=== PATIENT | female | born 1980 | race Caucasian/White ===

== ENCOUNTER 2019-05-13 06:06 | Inpatient (IN) | payer MEDICAID, SELFPAY ==
[2019-05-13] VITALS (77 sets, daily range): BP systolic 0–175; BP diastolic 0–91; PULSE 71–107; RESP 18; TEMP 36.4–37.1; O2SAT 97–99; BMI 41.4
--- NOTE | 2019-05-13 06:42 | PM.HP ---
Providers/Chief Complaint Admitting Physician: Lorenzo Leong MD Chief Complaint: IUP History of Present Illness Miriam Posey is a 38 year old at 40.1 weeks gestation by LMP consistent with 9-week ultrasound. Her is complicated by advanced maternal age, hypothyroidism, history of gestational hypertension, maternal obesity, short inter-gestational spacing, mild anemia. Review of Systems Narrative: The patient denies fever, chest pains, cough, sore throat, dyspnea, leakage of fluid, vaginal bleeding. Medications/Allergies Home Medications Medication Instructions Recorded Confirmed Last Taken Type PNV,calcium 61-lmbw-yntgu acid 1 tab PO DAILY 05/13/19 05/13/19 05/11/19 History [ Vitamin Plus Low Iron] 0500 levothyroxine 100 mcg PO DAILY 05/13/19 05/13/19 05/13/19 History 0500 Allergies Allergy/AdvReac Type Severity Reaction Status Date / Time No Known Allergies Allergy Verified 05/13/19 07:25 PFSH Acute PFSH: Statuses (acute, chronic, etc) shown below reflect problem list status as previously entered and may not be historically accurate Surgical History (Updated 05/13/19 @ 06:49 by Lorenzo Leong MD) H/O ventral hernia repair (Acute) History of repair of pyloric stenosis (Acute) Physical Exam Narrative: EXAM NARRATIVE: General: Alert and oriented x3 Eyes: Pupils equal round and reactive to light and accommodation Mouth: Mucous membranes moist, pharynx non-erythematous Cardiac: Regular rate and rhythm without murmurs Lungs: Clear to auscultation bilaterally without wheezes, crackles or rhonchi Abdomen: Soft, non-tender, fundus consistent with gestational age Extremities: Trace edema in the bilateral lower extremities Data : 05/13/19 07:15 05/13/19 09:15 A&P Additional A&P Information The patient is doing well at this time. She is having contractions sporadically every 5 to 7 minutes. They are not painful at this time. heart tones are in the mid 150s with moderate variability and good accelerations. There is a category 1 tracing. We will plan to proceed with induction of labor with IV Pitocin. On exam, the patient's cervix was 3 cm dilated. The patient may receive a labor and epidural when desired. All questions were answered. The patient and her are in agreement with the current plan of care. Attestations Medical Necessity Statement*: The patient will be here for greater than 2 midnights due to routine intrapartum and management of labor and delivery. 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
[2019-05-13] MEDS: oxytocin 30 UNIT/500 ML BAG IV (07:36)
[2019-05-13] MEDS: dextrose 5%-lactated ringers 1,000 ML 125 ML IV ×2 (07:37→16:44)
[2019-05-13 07:44] LABS: Basophils % 0.3 %; Eosinophils # 0.1 10^3/uL (0.0-0.8); Hematocrit 34.8 % (37.0-47.0); Hemoglobin 11.5 g/dL (11.5-15.3); Lymphocytes # 2.1 10^3/uL (0.8-4.8); Lymphocytes % 22.3 %; Mean Corpuscular Hemoglobin 31.3 pg (28.0-34.0); Mean Corpuscular Volume 94.6 fL (81-99); Mean Platelet Volume 12.9 fL (7.4-10.4); Monocytes # 0.7 10^3/uL (0.2-0.9); Monocytes % 7.3 %; Neutrophils # 6.3 10^3/uL (1.8-7.7); Nucleated Red Blood Cells % 0 %; Platelet Count 191 10^3/cmm (130-400); Red Blood Count 3.68 10^6/uL (4.1-5.3); Red Cell Distribution Width 13.5 % (12.1-15.1); White Blood Count 9.2 10^3/uL (4.0-10.0)
[2019-05-13] MEDS: labetalol 5 mg/mL SDV 20mL 20 MG IVP (08:56)
[2019-05-13 09:29] LABS: Add Urine Microscopic? NO
[2019-05-13 09:46] LABS: Alanine Aminotransferase 7 U/L (0-33); Albumin Level 3.4 g/dL (3.5-5.2); Alkaline Phosphatase 145 IU/L (35-105); Aspartate Amino Transferase 15 U/L (0-32); Blood Urea Nitrogen 8 mg/dL (6-20); Calcium 9.6 mg/dL (8.5-10.5); Carbon Dioxide 21 mmol/L (22-29); Chloride 102 mmol/L (98-107); Globulin 3.3 g/dL (1.3-4.6); Glomerular Filtration Rate 138.1 mL/min (90-130); Glucose 108 mg/dL (74-109); Sodium 135 mmol/L (136-145); Total Bilirubin 0.2 mg/dL (0.15-1.2); Total Protein 6.7 g/dL (6.6-8.7); Uric Acid 5.3 mg/dL (2.4-5.7)
[2019-05-13 10:11] LABS: Bilirubin Urine Neg (NEGATIVE); Blood Urine Neg (Negative); Glucose Urine UA Norm (Normal); Ketones Urine Negative (Negative); Leukocyte Esterase Urine Negative (Negative); Nitrate Urine Negative (Negative); Protein Urine Neg (Negative); Specific Gravity, Urine 1.005 (1.005-1.030); Urine Appearance Clear (CLEAR); Urine Color Straw (Yellow); Urobilinogen Urine Norm (Negative)
[2019-05-13] MEDS: lactated ringers 1,000 ML 999 ML IV ×2 (10:24)
[2019-05-13 10:26] LABS: Urine Creatinine 39 mg/dL (28-217); Urine Protein Random 4 mg/dL
--- NOTE | 2019-05-13 12:02 | ANES.PROC ---
Anesthesia Procedures Procedure/Date: 05/13/19 Epidural: Time Out Performed: Yes Consents Signed: Procedure Consent and NPO Consent Consent: requested by attending/covering physician, from patient, risks and benefits reviewed and patient agrees to proceed Lumbar Level: L2-L3 Epidural position: sitting Epidural procedure: sterile prep of area, 1% lidocaine to numb the area, 18 g needle, negative for paresthesia passed, test dose given, 1.5% xylocaine 1:200k epi (3 ml), placed PCEA, no systemic response, sterile dressing applied and 0.2% Ropiavacaine @ mls/hr (13) Additional Comments: Loss at 6 cm, threaded to 12 cm (but seems to have pulled in when patient sat straight up), may be able to pull back 1-2 cm if pain control one sided or not optimal. Patient did have 2 pain free contractions and her b/l hip pain improved and she feels numbness in her toes.
--- NOTE | 2019-05-13 17:28 | PM.DELIVERY ---
 Delivery Note: Date of delivery: 05/13/19 Pre-delivery diagnoses: 1. Intrauterine at 40.1 weeks gestation 2. Advanced maternal age 3. Hypothyroidism 4. Elevated blood pressure during delivery 5. Maternal obesity 6. Short interval gestational spacing Post-delivery diagnoses: 1. Intrauterine status post spontaneous vaginal delivery at 40.1 weeks gestation 2. Advanced maternal age 3. Hypothyroidism 4. Elevated blood pressure during delivery 5. Maternal obesity 6. Short interval gestational spacing 7. Delivery of healthy infant female weighing 8 pounds 15 ounces with Apgars of 8 and 9 Procedure: Spontaneous vaginal delivery First-degree laceration with repair Anesthesia: epidural Delivering Physician: Lorenzo Leong MD Estimated blood loss (mL): 75 Pre-Delivery Course: The patient was admitted to labor and delivery triage secondary to postdates for a scheduled induction of labor. She was admitted on the morning of 05/13/2019 at 6 AM. She was started on IV Pitocin. Her initial exam was 3 cm dilation. The patient had a few isolated elevated blood pressures with tomorrow that were greater than 160, so she received 1 dose of labetalol IV during labor. Following this, she did not have any in the severe range. The patient received a labor epidural. The patient had regular contractions every 2 to 3 minutes and her cervix made steady change. At 1539 on 05/13/2019, the patient was sick centimeters dilated and AROM was performed. Clear fluid was noted. The patient continued to make change and by 1647 on 05/13/2019 she was complete. Delivery: The patient began pushing at 1701 on 05/13/2019. The patient pushed well and the delivered in 15 seconds of pushing at 1701 on 05/13/2019. The delivered in the OA position. The left shoulder was the anterior shoulder and it delivered with ease. The rest of the delivered with ease. There was no nuchal cord. The infant's mouth and nose were bulb suctioned by myself and the infant was crying immediately upon delivery. The infant was placed on the mother's chest where the nurses were awaiting to care for her. The cord was clamped by myself after approximately 1 minute. The cord was cut by the 's father. Cord blood was obtained. The cord was then drained of blood and traction was placed on the umbilical cord. The placenta delivered without complication at 1705 on 05/13/2019. The placenta was noted to be intact with a central umbilical cord insertion site. The cervix was inspected and no lacerations were noted. The vaginal wall was inspected and a first-degree midline perineal laceration was noted. Adequate anesthesia was present with her epidural. 3-0 Vicryl was used to repair the laceration in a running fashion. The patient tolerated this well. Rectal exam was done and no sutures were noted in the rectum. Currently both the mother and are doing well. 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
[2019-05-13] MEDS: oxytocin 30 UNIT/500 ML BAG 60 UNIT IV (19:26)
[2019-05-13] MEDS: lanolin oint 7 gm 1 APPLIC TOPICAL (20:43)
[2019-05-13] MEDS: benzocaine-menthol 78 gm Canister 1 SPRAY TOPICAL (20:43)
[2019-05-13] MEDS: docusate sodium 100 mg Capsule PO (20:58)
[2019-05-14 01:00] VITALS: BP 126/78; PULSE 75; RESP 18
[2019-05-14 03:10] VITALS: BP 132/85; PULSE 84; RESP 18; TEMP 36.4
[2019-05-14 07:03] LABS: Hematocrit 33.4 % (37.0-47.0); Hemoglobin 10.9 g/dL (11.5-15.3); Mean Corpuscular HGB Conc 32.6 g/dL (30.0-36.0); Mean Corpuscular Hemoglobin 32.1 pg (28.0-34.0); Mean Corpuscular Volume 98.2 fL (81-99); Mean Platelet Volume 12.4 fL (7.4-10.4); Platelet Count 172 10^3/cmm (130-400); Red Cell Distribution Width 13.6 % (12.1-15.1); White Blood Count 9.2 10^3/uL (4.0-10.0)
[2019-05-14 07:40] VITALS: BP 146/82; PULSE 86; RESP 17; TEMP 36.8; O2SAT 97
[2019-05-14] MEDS: docusate sodium 100 mg Capsule PO ×2 (08:48→18:29)
[2019-05-14] MEDS: prenatal vitamin Capsule 1 CAP PO (08:48)
--- NOTE | 2019-05-14 10:02 | PM.DCS ---
Discharge Providers Date of Admission: 05/13/19 06:06 Date of Discharge: Date of Discharge: May 14, 2019 Attending Provider at Admission: Lorenzo Leong MD Attending Provider at Discharge: Lorenzo Leong MD Diagnoses at Discharge Other Information Additional DC diagnoses/information: 1. Intrauterine status post spontaneous vaginal delivery at 40.1 weeks gestation 2. Advanced maternal age 3. Hypothyroidism 4. Elevated blood pressure during delivery 5. Maternal obesity 6. Short interval gestational spacing 7. Delivery of healthy female weighing 8 pounds 15 ounces with Apgars of 8 and 9 Reason for Visit Reason for Visit: Reason For Visit: IUP Hospital Course Hospital Course: Intrapartum course: The patient was admitted to labor and delivery triage secondary to postdates for a scheduled induction of labor. She was admitted on the morning of 05/13/2019 at 6 AM. She was started on IV Pitocin. Her initial exam was 3 cm dilation. The patient had a few isolated elevated blood pressures with tomorrow that were greater than 160, so she received 1 dose of labetalol IV during labor. Following this, she did not have any in the severe range. The patient received a labor epidural. The patient had regular contractions every 2 to 3 minutes and her cervix made steady change. At 1539 on 05/13/2019, the patient was sick centimeters dilated and AROM was performed. Clear fluid was noted. The patient continued to make change and by 1647 on 05/13/2019 she was complete. Delivery: The patient began pushing at 1701 on 05/13/2019. The patient pushed well and the infant delivered in 15 seconds of pushing at 1701 on 05/13/2019. The delivered in the OA position. The left shoulder was the anterior shoulder and it delivered with ease. The rest of the delivered with ease. There was no nuchal cord. The infant's mouth and nose were bulb suctioned by myself and the infant was crying immediately upon delivery. The infant was placed on the mother's chest where the nurses were awaiting to care for her. The cord was clamped by myself after approximately 1 minute. The cord was cut by the 's father. Cord blood was obtained. The cord was then drained of blood and traction was placed on the umbilical cord. The placenta delivered without complication at 1705 on 05/13/2019. The placenta was noted to be intact with a central umbilical cord insertion site. The cervix was inspected and no lacerations were noted. The vaginal wall was inspected and a first-degree midline perineal laceration was noted. Adequate anesthesia was present with her epidural. 3-0 Vicryl was used to repair the laceration in a running fashion. The patient tolerated this well. Rectal exam was done and no sutures were noted in the rectum. Currently both the mother and are doing well. course: The patient has done very well and has had no complications. Her bleeding is decreasing well. Her pain is well controlled. She is ambulating, voiding, passing gas and tolerating food by mouth. The patient would like to be discharged home this evening if possible. Barring any setbacks, this will be possible. Her blood pressures have occasionally been elevated, however not to the severe range at this time. She will watch these at home to be sure that they are not increasing. Precautions were given. The patient and her are in agreement with discharge home at this time. Physical Exam Narrative: EXAM NARRATIVE: General: Alert and oriented x3 Cardiac: Regular rate and rhythm without murmurs Lungs: Clear to auscultation bilaterally without wheezes, crackles or rhonchi Abdomen: Soft, nontender, uterus is well below the umbilicus. Extremities: +1 pitting edema in the bilateral lower extremities Urinary Catheter Management^: Demarco: Cath Placed During This Visit: no Discharge Data Data Completed and Pending: Labs from last 24 hours 05/14/19 05/13/19 05/13/19 06:50 09:15 09:15 WBC 9.2 RBC 3.40 L Hgb 10.9 L Hct 33.4 L MCV 98.2 MCH 32.1 MCHC 32.6 RDW 13.6 Plt Count 172 MPV 12.4 H Urine Color Straw Urine Appearance Clear Urine pH 7.0 Ur Specific Gravit y 1.005 Urine Protein Neg Urine Glucose (UA) Norm Urine Ketones Negative Urine Occult Blood Neg Urine Nitrate Negative Urine Bilirubin Neg Urine Urobilinogen Norm Ur Leukocyte Adelaide ase Negative U Random Total Pro tein 4 Urine Creatinine 39 Protein/Creatinin Ratio 0.10 Vitals: Last Vital Signs Temp 97.5 F L 05/14/19 03:10 Pulse 84 05/14/19 03:10 Resp 18 05/14/19 03:10 BP 132/85 05/14/19 03:10 Pulse Ox 98 05/13/19 11:43 Discharge Plan Discharge Patient Disposition: Home, Self-Care Condition: Good Prescriptions: New ibuprofen 800 mg Tablet 800 mg PO TID Qty: 60 RF: 0 hydrocodone-acetaminophen 5-325 mg Tablet 1 tab PO Q6H PRN (Reason: Moderate To Severe Pain) Qty: 10 RF: 0 Continued levothyroxine 100 mcg tablet 100 mcg PO DAILY RF: 0 Vitamin Plus Low Iron 27 mg iron- 1 mg tablet 1 tab PO DAILY RF: 0 Discharge Orders: Discharge Order (Routine); Ordered 05/14/19 Ordered By: Lorenzo Leong Referrals: Lorenzo Leong MD [Family Provider] - 6 Weeks Discharge Diet: Usual diet Discharge Activity: Increase activity as tolerated Patient Instructions: Hydrocodone/Acetaminophen (By mouth), Ibuprofen (By mouth), Levothyroxine (By mouth), Vitamins (By mouth), OB Caring for Baby - [facility], OB Discharge Report, OB Food/Drug Interaction Guide, OB Your Care - [facility], OB Proud Parent Packet Activity Restrictions/Additional Instructions: Nothing per vagina for 6 weeks. Showers are okay, however no baths for 6 weeks. 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
[2019-05-14 11:35] VITALS: BP 131/80; PULSE 75; RESP 16; TEMP 36.6; O2SAT 98
[2019-05-14 16:31] VITALS: BP 134/82; PULSE 86; RESP 15; TEMP 37.1; O2SAT 97
== END 2019-05-14 18:50 | disposition home or self-care (01) | DRG 806 ==
PROVIDERS: Admitting Provider Family Medicine; Family Provider Family Medicine; Visit Provider Family Medicine
DX: O48.0 Post-term pregnancy (principal); O16.3 Unspecified maternal hypertension, third trimester; Z37.0 Single live birth; O70.0 First degree perineal laceration during delivery; Z3A.40 40 weeks gestation of pregnancy; O09.523 Supervision of elderly multigravida, third trimester; O99.284 Endocrine, nutritional and metabolic diseases complicating childbirth; O99.214 Obesity complicating childbirth; E66.9 Obesity, unspecified; E03.9 Hypothyroidism, unspecified
CPT/HCPCS: 12345; 36415; 36591; 51702; 59025; 59409; 80053; 81003; 82570; 84156; 84550; 85025; 85027; 96374; 96375; J2795; J3490

== ENCOUNTER → 2021-08-12 09:44 | Outpatient (BNVA) | payer BC, MEDICAID, SELFPAY | PROVIDERS: Family Provider Family Medicine; Visit Provider Family Medicine | DX: Z00.00 Encounter for general adult medical examination without abnormal findings (principal); Z13.220 Encounter for screening for lipoid disorders; E03.9 Hypothyroidism, unspecified | CPT/HCPCS: 80053; 80061; 84439; 84443; 85025 ==

== ENCOUNTER 2021-12-26 08:16 | Outpatient (CLI) | payer BC, MEDICAID, SELFPAY ==
--- NOTE | 2021-12-26 08:23 | MM_ITS ---
WS: [id number] Bilateral screening 3D tomosynthesis digital mammogram, 12/26/2021 Clinical Data: SCREENING Comparison: None. Findings: The breast parenchymal pattern shows heterogeneous density. No spiculated masses or clustered calcifi cations are seen. There are no secondary signs of carcinoma. There are mole markers on both breasts. There are intramammary lymph nodes bilaterally. MM/[place] [id number] Impression: 1. Negative bilateral mammogram no prior exam for review.. 2. Recommend annual screening mammograms. BIRADS: 1-Negative FOLLOW UP: 1 Year Follow-up The CAD weight checker was used.
== END 2021-12-26 08:17 | disposition home or self-care (01) ==
LOC: RAD 08:16
PROVIDERS: PCP Family Medicine; Visit Provider Family Medicine
DX: Z12.31 Encounter for screening mammogram for malignant neoplasm of breast (principal)
CPT/HCPCS: 77063; 77067

== ENCOUNTER → 2022-07-02 09:47 | Outpatient (BNVA) | payer BC, MEDICAID, SELFPAY | PROVIDERS: PCP Family Medicine; Visit Provider Family Medicine | DX: N92.6 Irregular menstruation, unspecified (principal); Z30.9 Encounter for contraceptive management, unspecified; E03.9 Hypothyroidism, unspecified; E78.00 Pure hypercholesterolemia, unspecified | CPT/HCPCS: 84702 ==

== ENCOUNTER → 2022-09-19 12:07 | Outpatient (BNVA) | payer BC, MEDICAID, SELFPAY | PROVIDERS: PCP Family Medicine; Visit Provider Family Medicine | DX: E03.9 Hypothyroidism, unspecified (principal); E78.00 Pure hypercholesterolemia, unspecified; Z51.81 Encounter for therapeutic drug level monitoring | CPT/HCPCS: 84439; 84443; 85025 ==

== ENCOUNTER → 2023-11-26 10:47 | Outpatient (BNVA) | payer BC, MEDICAID, SELFPAY | PROVIDERS: PCP Family Medicine; Visit Provider Family Medicine | DX: Z51.81 Encounter for therapeutic drug level monitoring (principal); Z13.1 Encounter for screening for diabetes mellitus; E03.9 Hypothyroidism, unspecified; Z13.220 Encounter for screening for lipoid disorders | CPT/HCPCS: 80053; 80061; 83036; 84439; 84443; 85025 ==

== ENCOUNTER 2023-12-07 16:44 | Outpatient (CLI) | payer BC, MEDICAID, SELFPAY ==
--- NOTE | 2023-12-07 17:00 | USR_ITS ---
PROCEDURE INFORMATION: Exam: US Pelvis, Complete, Non-Obstetric Exam date and time: 12/07/2023 5:10 PM Age: 43 years old Clinical indication: Condition or disease; Other: Irregular bleeding; Additional info: Irregular vaginal bleeding TECHNIQUE: Imaging protocol: Transabdominal pelvic nonobstetric ultrasound. Complete exam. Real time ultrasound with image documentation. COMPARISON: US OB >= 14 weeks fetus [id number] 12/21/2018 9:02 AM FINDINGS: Uterus: Uterus is normal. Endometrial stripe is normal. Right ovary/adnexa: Normal blood flow. Small follicle seen within right ovary measuring 0.9 x 0.8 cm. Left ovary/adnexa: Ovary is normal. No mass. Normal blood flow. Intraperitoneal space: No intraperitoneal fluid. Urinary bladder: Normal. US/US pelv w/transvag [id number] IMPRESSION: No acute findings.
== END 2023-12-07 16:45 | disposition home or self-care (01) ==
LOC: RAD 16:45
PROVIDERS: PCP Family Medicine; Visit Provider Family Medicine
DX: N92.6 Irregular menstruation, unspecified (principal); N18.9 Chronic kidney disease, unspecified; E78.00 Pure hypercholesterolemia, unspecified; E03.9 Hypothyroidism, unspecified; Z30.011 Encounter for initial prescription of contraceptive pills; R53.83 Other fatigue; R73.03 Prediabetes; I12.9 Hypertensive chronic kidney disease with stage 1 through stage 4 chronic kidney disease, or unspecified chronic kidney disease
CPT/HCPCS: 76830; 76856; 80053; 80061; 83036; 84439; 84443; 85025

== ENCOUNTER → 2023-12-22 10:06 | Outpatient (BNVA) | payer BC, MEDICAID, SELFPAY | PROVIDERS: PCP Family Medicine; Visit Provider Family Medicine | DX: Z01.419 Encounter for gynecological examination (general) (routine) without abnormal findings (principal) | CPT/HCPCS: 87624 ==

== ENCOUNTER → 2024-06-13 11:56 | Outpatient (BNVA) | payer BC, MEDICAID, SELFPAY | PROVIDERS: PCP Family Medicine; Visit Provider Family Medicine | DX: Z32.00 Encounter for pregnancy test, result unknown (principal); N92.6 Irregular menstruation, unspecified | CPT/HCPCS: 84702 ==

== ENCOUNTER 2024-07-03 13:50 | Emergency (ER) | payer BC, MEDICAID, SELFPAY ==
[2024-07-03 13:53] VITALS: BP 133/80; PULSE 88; RESP 16; TEMP 36.6; O2SAT 99; BMI 38.7
--- NOTE | 2024-07-03 14:10 | USR_ITS ---
PROCEDURE INFORMATION: Exam: US Abdomen, Limited; Right Upper Quadrant Exam date and time: 07/03/2024 2:57 PM Age: 44 years old Clinical indication: Abdominal pain; Localized; Right upper quadrant (ruq); Prior surgery; Surgery date: 6+ months; Surgery type: Patient was ten days old she had abdominal surgery for duodenal stenosis TECHNIQUE: Imaging protocol: Real time ultrasound of the abdomen with image documentation. Limited exam focused on the right upper quadrant. COMPARISON: US pelv w/transvag [id number] 12/07/2023 5:10 PM FINDINGS: Liver: The liver is hyperechoic measuring 15.6 cm. Gallbladder: Normal. No gallstones. There is no gallbladder wall thickening. Biliary ducts: Normal. No stones. No dilation. Pancreas: Visualized pancreas is unremarkable. Right kidney: Normal. No mass. No hydronephrosis. Portal venous: Hepatopetal flow in the main portal vein. Intraperitoneal space: No ascites. US/US gall bladder [id number] IMPRESSION: 1. No acute findings. 2. Hyperechoic liver, consistent with steatosis/steatohepatitis.
[2024-07-03 14:35] LABS: Basophils # 0.1 10^3/uL (0.0-0.1); Basophils % 0.5 %; Eosinophils # 0.2 10^3/uL (0.0-0.8); Eosinophils % 1.9 %; Hematocrit 39.3 % (36-47); Lymphocytes # 2.2 10^3/uL (0.8-4.8); Lymphocytes % 17.2 %; Mean Corpuscular HGB Conc 33.1 g/dL (30-55); Mean Corpuscular Hemoglobin 30.7 pg (27-33); Mean Corpuscular Volume 92.9 fl (85-98); Mean Platelet Volume 11.3 fL (7.4-10.4); Monocytes # 0.7 10^3/uL (0.2-0.9); Monocytes % 5.7 %; Neutrophils # 9.32 10^3/uL (1.8-7.7); Neutrophils % 74.4 %; Nucleated Red Blood Cells % 0 %; Platelet Count 276 10^3/cmm (157-399); Red Blood Count 4.23 10^6/uL (3.85-5.65); Red Cell Distribution Width 12.3 % (12.1-15.1); White Blood Count 12.53 10^3/uL (3.29-11.43)
[2024-07-03 14:48] LABS: HCG, Serum Qual Negative (Negative)
[2024-07-03 14:55] LABS: Alanine Aminotransferase 27 U/L (0-33); Albumin Level 4.5 g/dL (3.5-5.2); Alkaline Phosphatase 94 U/L (35-105); Aspartate Amino Transferase 26 U/L (0-32); Blood Urea Nitrogen 14 mg/dL (6-20); Calcium 9.9 mg/dL (8.5-10.5); Carbon Dioxide 27 mmol/L (22-29); Chloride 101 mmol/L (98-107); Creatinine Clr Calc Pharmacy 128.1068; Globulin 3.2 g/dL (1.3-4.6); Glomerular Filtration Rate 90.9 mL/min (90-130); Glucose 85 mg/dL (65-115); Lipase 23 U/L (13-60); Osmolality Calculated 292 mOsm/kg (285-295); Sodium 141 mmol/L (136-145); Total Bilirubin 0.4 mg/dL (0.15-1.2); Total Protein 7.7 g/dL (6.6-8.7)
--- NOTE | 2024-07-03 14:55 | ED_ITS ---
HPI - Abdominal Pain 2 General: Chief Complaint: Abdominal Pain Stated Complaint: right upper abd pain Time Seen by Provider: 07/03/24 14:30 History of Present Illness: 44-year-old female with a relevant past medical history of IBS, chronic constipation, irregular menstrual periods, and obesity who presents to the emergency department with 9 days of abdominal pain. At first it was coming and going but now it is mostly constant. She feels distended and full. Last bowel movement was yesterday and was fairly small. She has felt cramping abdominal pain and the urge to pass gas. Sometimes when she is able to pass gas she feels better and other times she is not able to pass gas and pain continues. She has been belching more than usual. She has nausea with no vomiting. No fever or chills. LMP was May 17. She did just come off of control and anticipates that her period will be irregular. No urinary symptoms. Denies chronic abdominal pain. Her IBS has been under pretty good control. Nothing seems to make it better or worse. The current location of most of her pain is in the right upper and epigastric region. She does still have her gallbladder. Associated Symptoms: Reports diarrhea (For 1 day) and nausea; Denies chills, dysuria, fever(s), syncope and vomiting Related Data Previous Rx's ?Medication ?Instructions ?Recorded levothyroxine 75 mcg tablet See Rx Instructions .Route 12/07/23 .COMPLEX #30 tabs vitamins no.154-ferrous 1 tab PO DAILY #30 ta bs 05/16/24 fumarate 27 mg-folic acid 1 mg tablet glycerin (adult) (Fleet Glycerin 1 supp KY BID PRN con stipation #12 07/03/24 (Adult) rectal suppository) ea mineral oil ([id number] Enema 118 ml KY BID PRN cons tipation 07/03/24 (mineral oil)) #266 mL ondansetron 4 mg disintegrating 4 mg PO Q6H PRN nausea and 07/03/24 tablet vomiting #14 tabs polyethylene glycol 3350 17 17 g PO Q1H PRN constipati on #238 07/03/24 gram/dose oral powder (Miralax) grams sennosides 8.6 mg-docusate sodium 2 tab-cap (2 x 8.6-5 0 mg) PO BID 07/03/24 50 mg tablet (Senna with Docusate PRN constipation #20 tabs Sodium) Allergies Allergy/AdvReac Type Severity Reaction Status Date / Time No Known Allergies Allergy Verified 01/30/22 09:03 Review of Systems 2 General: Reports: 10 or more systems reviewed and unremarkable except in HPI and below Const: Denies: fever(s), chills or body aches Eyes: Denies: change in vision ENMT: Denies: throat pain Card: Denies: chest pain, edema or syncope Resp: Denies: dyspnea or productive cough GI: Reports: abdominal pain, nausea and diarrhea (For 1 day); Denies: vomiting : Denies: flank pain, dysuria or urinary frequency Musc: Denies: neck pain, back pain, extremity pain or extremity swelling Skin/Breast: Denies: rash or erythema Neuro: Denies: headache(s), numbness in extremities, weakness in extremities, lack of coordination or difficulty walking PFSH ED 2 PFSH: Medical History Hypercholesteremia Hypothyroidism Surgical History History of repair of pyloric stenosis H/O ventral hernia repair Family History Grandmother Cancer Chronic kidney disease (CKD) Father Hypertension Sister Lung disease asthma Social History Smoking and tobacco/nicotine status: never used tobacco/nicotine Alcohol intake: never Substance/Drug Use: never 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 - [employer] Female Reproductive History: Para: 5 Physical Exam 2 Const: COMMON NORMALS: no limitations, alert and well nourished EXAM LIMITATIONS: no altered mental status HENMT: COMMON NORMALS: normocephalic, atraumatic and external ears normal H EAD & SCALP: normocephalic and atraumatic EXTERNAL EAR: Yes external ears normal MOUTH: no muffled voice Eye: COMMON NORMALS: EOMs intact bilaterally, conjunctivae normal and no scleral icterus CONJUNCTIVA: Yes conjunctivae normal Neck/C-Spine: GENERAL: Yes normal visual inspection and Yes trachea midline Resp: COMMON NORMALS: normal respiratory effort, No use of accessory muscles and clear to auscultation bilaterally AUSCULTATION: clear to auscultation bilaterally Cardio: COMMON NORMALS: regular rate and regular rhythm RATE: regular rate RHYTHM: regular rhythm GI: OTHER: Mild diffuse abdominal discomfort with palpation. No rebound. Hypoactive bowel sounds. There are no high-pitched bowel sounds. Abdomen is slightly distended. It is dull to percussion except over the gastric bubble. No appendiceal signs. Negative Bethea sign. Extremity: COMMON NORMALS: normal to inspection Neuro: COMMON NORMALS: moves all extremities, no focal motor deficits and no sensory deficits noted SENSORIUM/ORIENTATION: Yes alert SPEECH: speech normal Psych: COMMON NORMALS: mental status grossly normal, Normal thought process present, cooperative, normal affect and speech normal SPEECH: Yes normal speech THOUGHT PROCESS: Normal thought process present Skin: COMMON NORMALS: no rashes or lesions noted, turgor normal and no jaundice GENERAL SKIN EXAM: no rashes or lesions noted and turgor normal Course 2 Vital Signs: Vital signs: Vital Signs Temperature 97.9 F 07/03/24 13:53 Pulse Rate 85 07/03/24 15:52 Respiratory Rate 16 07/03/24 15:50 Blood Pressure 134/74 07/03/24 15:52 Pulse Oximetry 97 07/03/24 15:52 Oxygen Delivery Me thod Room Air 07/03/24 15:52 MDM - Abdominal Pain Medical Decision Making Differential diagnosis includes constipation, bowel obstruction, atypical cholecystitis, hepatitis, pancreatitis, atypical diverticulitis or colitis, neoplastic process, IBS, obstipation, other. Seems less likely to be vascular, genitourinary, , cardiac. Right upper quadrant ultrasound was performed and was within normal limits. CBC showed a mildly elevated white blood cell count but was otherwise normal. hCG is negative. CMP is reassuring. UA is negative. Patient reassessed. She reports the pushing on her abdomen for ultrasound made the pain slightly worse. No vomiting. Abdomen was reexamined. No change. I discussed the differential diagnosis with patient and significant other. I offered CT scan and we discussed the risk and benefits. I suspect that she is probably suffering from constipation and obstipation. However, I noted that this is based on history and exam and that it could not be confirmed without imaging. Patient reports she feels comfortable doing a trial of medications to reveal constipation and obstipation as she believes this is also the cause. Therefore them to give her a variety of tools to use including suppositories, enemas, Colace, senna, MiraLAX. We are going to use a combination of these medications and see if we can obtain results. If her abdominal pain is getting worse or she has new or concerning features she was instructed to return to the ER and agreed. Lab Data 07/03/24 14:27 07/03/24 14:27 Labs/Radiology: Laboratory Results WBC 12.53 10^3/uL (3.29-11.43) H 07/03/24 14:27 RBC 4.23 10^6/uL (3.85-5.65) 07/03/24 14:27 Hgb 13.00 g/dL (11.27-16.99) 07/03/24 14:27 Hct 39.3 % (36-47) 07/03/24 14:27 MCV 92.9 fl (85-98) 07/03/24 14:27 MCH 30.7 pg (27-33) 07/03/24 14:27 MCHC 33.1 g/dL (30-55) 07/03/24 14:27 RDW 12.3 % (12.1-15.1) 07/03/24 14:27 Plt Count 276 10^3/cmm (157-399) 07/03/24 14:27 MPV 11.3 fL (7.4-10.4) H 07/03/24 14:27 Neut % (Auto) 74.4 % 07/03/24 14:27 Lymph % (Auto) 17.2 % 07/03/24 14:27 [place] % (Auto) 5.7 % 07/03/24 14:27 Eos % (Auto) 1.9 % 07/03/24 14:27 Baso % (Auto) 0.5 % 07/03/24 14:27 Neut # (Auto) 9.32 10^3/uL (1.8-7.7) H 07/03/24 14:27 Lymph # (Auto) 2.2 10^3/uL (0.8-4.8) 07/03/24 14:27 [place] # (Auto) 0.7 10^3/uL (0.2-0.9) 07/03/24 14:27 Eos # (Auto) 0.2 10^3/uL (0.0-0.8) 07/03/24 14:27 Baso # (Auto) 0.1 10^3/uL (0.0-0.1) 07/03/24 14:27 Nucleated RBC % (auto) 0 % 07/03/24 14:27 Nucleated RBCs # 0.0 /100WBC 07/03/24 14:27 Sodium 141 mmol/L (136-145) 07/03/24 14:27 Potassium 4.0 mmol/L (3.5-5.1) 07/03/24 14:27 Chloride 101 mmol/L (98-107) 07/03/24 14: Carbon Dioxide 27 mmol/L (22-29) 07/03/24 14:27 Anion Gap 17.0 (5-19) 07/03/24 14:27 BUN 14 mg/dL (6-20) 07/03/24 14:27 Creatinine 0.7 mg/dL (0.5-0.9) 07/03/24 14:27 GFR Calculation 90.9 mL/min (90-130) 07/03/24 14:27 Glucose 85 mg/dL (65-115) 07/03/24 14:27 Calculated Osmolality 292 mOsm/kg (285-295) 07/03/24 14:27 Calcium 9.9 mg/dL (8.5-10.5) 07/03/24 14:27 Total Bilirubin 0.4 mg/dL (0.15-1.2) 07/03/24 14:27 AST 26 U/L (0-32) 07/03/24 14:27 ALT 27 U/L (0-33) 07/03/24 14:27 Alkaline Phosphatase 94 U/L (35-105) 07/03/24 14:27 Total Protein 7.7 g/dL (6.6-8.7) 07/03/24 14:27 Albumin 4.5 g/dL (3.5-5.2) 07/03/24 14:27 Globulin 3.2 g/dL (1.3-4.6) 07/03/24 14:27 Lipase 23 U/L (13-60) 07/03/24 14:27 HCG, Qual Negative (Negative) 07/03/24 14:27 Urine Color Yellow (Yellow) 07/03/24 15:20 Urine Appearance Clear (CLEAR) 07/03/24 15:20 Urine pH 6.0 (5-7) 07/03/24 15:20 Ur Specific [place] 1.011 (1.005-1.030) 07/03/24 15:20 Urine Protein Negative (Negative) 07/03/24 15:20 Urine Glucose (UA) Negative (Normal) 07/03/24 15:20 Urine Ketones Trace (Negative) 07/03/24 15:20 Urine Blood Negative (Negative) 07/03/24 15:20 Urine Nitrate Negative (Negative) 07/03/24 15:20 Urine Bilirubin Negative (Negative) 07/03/24 15:20 Urine Urobilinogen 0.2 mg/dL (Negative) 07/03/24 15:20 Ur Leukocyte Esterase Negative (Negative) 07/03/24 15:20 Urine RBC 0-2 /hpf (0-2) 07/03/24 15:20 Urine WBC 0-5 /hpf (0-5) 07/03/24 15:20 Ur Squamous Epith Cells 0-5 /hpf (0-5) 07/03/24 15:20 Amorphous Sediment Not Reportable 07/03/24 15:20 Urine Bacteria None seen /hpf (NONE) 07/03/24 15:20 Hyaline Casts 0-4 /lpf H 07/03/24 15:20 XR interpretation done by ED provider, pending radiology final review (US GB pending final review) ED provider radiology interpretation(s): US GB--EP interpretation. I have reviewed the images. Common bile duct 5 mm. Gallbladder wall thickness 3 mm. No pericholecystic fluid. No evidence of cholecystitis on ultrasound. Discharge Plan Discharge Patient Disposition: Home Clinical Impression: Abdominal pain, diffuse, Abdominal bloating Condition: Stable Prescriptions: New ondansetron 4 mg tablet,disintegrating 4 mg PO Q6H PRN (Reason: nausea and vomiting) Qty: 14 0RF polyethylene glycol 3350 [Miralax] 17 gram/dose powder 17 g PO Q1H PRN (Reason: constipation) Qty: 238 0RF mineral oil [[id number] Enema (min oil)] Enema 118 ml KY BID PRN (Reason: constipation) Qty: 266 1RF Rx Instructions: discard any unused portion sennosides-docusate sodium [Senna with Docusate Sodium] 8.6-50 mg tablet 2 tab-cap PO BID PRN (Reason: constipation) Qty: 20 0RF glycerin (adult) [Fleet Glycerin (Adult)] Suppository 1 supp KY BID PRN (Reason: constipation) Qty: 12 0RF No Action levothyroxine 75 mcg tablet See Rx Instructions .ROUTE .COMPLEX Qty: 30 6RF Dose Instruction: TAKE 1 TABLET BY MOUTH EVERY MORNING 30 MINUTES BEFORE BREAKFAST WITH WATER ONLY Rx Instructions: TAKE 1 TABLET BY MOUTH EVERY MORNING 30 MINUTES BEFORE BREAKFAST WITH WATER ONLY PNV no.154-iron fumarate-folic 27 mg iron- 1 mg tablet 1 tab PO DAILY Qty: 30 6RF Discharge Orders: Discharge ED (Routine); Ordered 07/03/24 Ordered By: Nestor Vital Referrals: Lorenzo Leong MD [Primary Care Provider] - 07/05/24 (f/u abd pain (suspected constipation)) Patient Instructions: Constipation (ED), Abdominal Pain (ED), Pain Management Activity Restrictions/Additional Instructions: We suspect that the cause of your abdominal pain is fecal retention with constipation. We have prescribed you a variety of different medications at work in various different ways and at different routes to help you. I would recommend that you take 2 tabs of the sennosides with docusate sodium today. I would also recommend that you use the enema. You should also take MiraLAX 17 g with 6 to 8 ounces of fluid. You can take the MiraLAX about every hour as needed until you are able to have bowel movements. If you have worsening abdominal pain, inability to tolerate food or drink by mouth, inability to pass gas, fever, or other new or urgent concerns then please return to the ER. 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
[2024-07-03 15:28] LABS: Bilirubin Urine Negative (Negative); Blood Urine Negative (Negative); Glucose Urine UA Negative (Normal); Ketones Urine Trace (Negative); Leukocyte Esterase Urine Negative (Negative); Nitrate Urine Negative (Negative); Protein Urine Negative (Negative); Specific Gravity, Urine 1.011 (1.005-1.030); Urine Appearance Clear (CLEAR); Urine Color Yellow (Yellow); Urobilinogen Urine 0.2 mg/dL (Negative)
[2024-07-03 15:33] LABS: Add Urine Microscopic? YES; Bacteria Urine None Seen /hpf; Hyaline Casts Urine 0-4 /lpf; RBC Urine 0-2 /hpf (0-2); Squamous Epithelial Cell Urine 0-5 /hpf (0-5); WBC Urine 0-5 /hpf (0-5)
[2024-07-03] MEDS: ondansetron 2 mg/ML SDV 2 mL 4 MG IVP (15:42)
[2024-07-03 15:50] VITALS: RESP 16; O2SAT 98
[2024-07-03] MEDS: morphine 4 mg/mL SDV 1 mL 8 MG IVP (15:50)
[2024-07-03] MEDS: ketorolac 30 mg/mL INJ 15 MG IVP (15:51)
[2024-07-03 15:52] VITALS: BP 134/74; PULSE 85; O2SAT 97
[2024-07-03 16:24] VITALS: BP 124/84; PULSE 81; O2SAT 95
== END 2024-07-03 16:25 | disposition home or self-care (01) ==
PROVIDERS: Emergency Medicine; Emergency Provider Emergency Medicine; PCP Family Medicine
DX: R10.9 Unspecified abdominal pain (principal); R14.0 Abdominal distension (gaseous)
CPT/HCPCS: 36415; 76705; 80053; 81001; 83690; 84703; 85025; 96374; 96375; 99284; J1885; J2270; J2405

== ENCOUNTER → 2024-07-07 09:29 | Outpatient (BNVA) | payer BC, MEDICAID, SELFPAY | PROVIDERS: PCP Family Medicine; Visit Provider Family Medicine | DX: R19.7 Diarrhea, unspecified (principal) | CPT/HCPCS: 87045; 87177; 87209; 87427; 87449; 87493 ==

== ENCOUNTER → 2024-08-09 16:31 | Outpatient (BNVA) | payer BC, MEDICAID, SELFPAY | PROVIDERS: PCP Family Medicine; Visit Provider Family Medicine | DX: R30.0 Dysuria (principal); N39.0 Urinary tract infection, site not specified | CPT/HCPCS: 81000; 87077; 87086; 87184 ==

== ENCOUNTER 2025-01-16 14:38 | Outpatient (CLI) | payer BC, SELFPAY ==
--- NOTE | 2025-01-16 14:43 | XR_ITS ---
WS: [id number] Right knee, 3 views, 01/16/2025 Clinical Data: Right knee pain Comparison: None. Findings: No displaced fractures or dislocations are seen. The joint spaces are normal. The patella is intact. The soft tissues are unremarkable. There is an oblique sclerotic line from the tibial spines ending on the lateral proximal tibia. This could represent an undisplaced fracture. XR/XR knee RT 3V* [id number] Impression: Sclerotic line of the tibial plateau extending from the tibial spines to the pr oximal tibia which could represent an undisplaced fracture.
== END 2025-01-16 14:39 | disposition home or self-care (01) ==
LOC: RAD 14:39
PROVIDERS: PCP Family Medicine; Visit Provider Family Medicine
DX: M25.561 Pain in right knee (principal); M85.861 Other specified disorders of bone density and structure, right lower leg
CPT/HCPCS: 73562

== ENCOUNTER 2025-01-23 08:32 | Outpatient (CLI) | payer BC, SELFPAY ==
--- NOTE | 2025-01-23 08:45 | MR_ITS ---
WS: [id number] MRI RIGHT KNEE NONCONTRAST TECHNIQUE: Axial PD, coronal PD fat sat, coronal PD, sagittal PD, and sagittal PD fat-sat images obtained. CLINICAL INFORMATION: Right knee pain - concern for possible fracture COMPARISON: None. FINDINGS: Distal quadriceps and patella tendons are intact. Tendinosis patella tendon at the origin and insertion. 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 Medial and lateral patellar retinacula appear intact. Trace suprapatellar fluid and edema ACL and PCL appear intact. Normal medial and lateral meniscus. No acute appearing meniscal tears. Medial and lateral collateral ligaments appear intact. Normal fibula head. Normal bone marrow signal in the femoral condyles and tibial plateau. Normal popliteal fossa. MR/MR knee RT wo con* [id number] IMPRESSION: 1. 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 2. Tendinosis in the origin and insertion of patellar tendon. 3. ACL and PCL appear intact. 4. No acute appearing meniscal tears. 5. No other acute findings. Outbridge grading: grade IV: full-thickness cartilage loss with underlying bone reactive changes
== END 2025-01-23 08:33 | disposition home or self-care (01) ==
LOC: RAD 08:36
PROVIDERS: PCP Family Medicine; Visit Provider Family Medicine
DX: M22.41 Chondromalacia patellae, right knee (principal); M76.51 Patellar tendinitis, right knee; M24.19 Other articular cartilage disorders, other specified site
CPT/HCPCS: 73721

== ENCOUNTER → 2025-01-24 16:03 | Outpatient (BNVA) | payer BC, SELFPAY | PROVIDERS: PCP Family Medicine; Visit Provider Orthopaedic Surgery | DX: M94.261 Chondromalacia, right knee (principal) | CPT/HCPCS: 73562 ==

== ENCOUNTER 2025-02-10 13:59 | Outpatient (RCR) | payer BC, SELFPAY | END 2025-02-10 23:59 | disposition home or self-care (01) | LOC: SPT 13:59 | PROVIDERS: Visit Provider Orthopaedic Surgery | DX: M25.561 Pain in right knee (principal) | CPT/HCPCS: 97161 ==

== ENCOUNTER 2025-02-11 05:00 | Outpatient (RCR) | payer BC, SELFPAY | END 2025-03-12 23:59 | disposition home or self-care (01) | LOC: SPT 05:00 | PROVIDERS: Visit Provider Orthopaedic Surgery | DX: M25.561 Pain in right knee (principal) | CPT/HCPCS: 97530 ==